=== PATIENT | female | born 2000 | race Caucasian/White ===

== ENCOUNTER 2024-11-06 18:46 | Inpatient (IN) | payer BC, MEDICAID, SELFPAY ==
[2024-11-06] VITALS (27 sets, daily range): BP systolic 93–127; BP diastolic 51–78; PULSE 68–103; RESP 17; TEMP 36.6–36.8; O2SAT 97–99; BMI 28.1
[2024-11-06 18:16] LABS: Basophils # 0.1 10^3/uL (0.0-0.1); Basophils % 0.3 %; Eosinophils # 0.1 10^3/uL (0.0-0.8); Eosinophils % 0.3 %; Hematocrit 35.7 % (36-47); Lymphocytes % 12.3 %; Mean Corpuscular HGB Conc 33.9 g/dL (30-55); Mean Corpuscular Hemoglobin 30.1 pg (27-33); Mean Corpuscular Volume 88.8 fl (85-98); Mean Platelet Volume 10.7 fL (7.4-10.4); Monocytes # 0.8 10^3/uL (0.2-0.9); Monocytes % 4.7 %; Neutrophils # 13.22 10^3/uL (1.8-7.7); Neutrophils % 81.5 %; Nucleated Red Blood Cells % 0 %; Platelet Count 265 10^3/cmm (157-399); Red Blood Count 4.02 10^6/uL (3.85-5.65); Red Cell Distribution Width 12.2 % (12.1-15.1); White Blood Count 16.23 10^3/uL (3.29-11.43)
[2024-11-06] MEDS: dextrose 5%-sod chloride 0.45% 1,000 ML 125 ML IV (18:28)
[2024-11-06] MEDS: ampicillin 2,000 MG in sodium chloride 0.9% (plus) 50 ML 100 MG IV (18:28)
[2024-11-06 18:36] LABS: Amphetamines Screen Urine Negative (Negative); Barbiturates Screen Urine Negative (Negative); Benzodiazepines Screen Urine Negative (Negative); Cocaine Screen Urine Negative (Negative); Opiate Screen Urine Negative (Negative); PCP Screen Urine Negative (Negative); THC Screen Urine Positive (Negative)
[2024-11-06] MEDS: sodium chloride 0.9% 1,000 ML 999 ML IV ×2 (21:37→21:39)
[2024-11-06] MEDS: ampicillin 1,000 MG in sodium chloride 0.9% (plus) 50 ML 100 MG IV (22:23)
[2024-11-06] MEDS: ROPivacaine syringe 100 MG/50 ML SYRINGE 12 MG EPIDURAL (23:00)
--- NOTE | 2024-11-06 23:15 | ANES.PAUD2 ---
Pre-Anesthetic Update Pre-Anesthetic Assessment: Date of Surgery/Procedure: 11/06/24 Any changes to Pre-Anesthetic Assessment?: No Labs Last 48hrs: Short CBC 11/06/24 Range/Units 17:45 WBC 16.23 H (3.29-11.43) 10^ 3/uL Hgb 12.10 (11.27-16.99) g/ dL Hct 35.7 L (36-47) % MCV 88.8 (85-98) fl Plt Count 265 (157-399) 10^3/c mm Neut % (Auto) 81.5 % Neut # (Auto) 13.22 H (1.8-7.7) 10^3/u L Blood Bank 11/06/24 17:45 Blood Type O Positive Rho(D) Type Rh positive Antibody Screen Negative Vitals: Temperature 97.9 F 11/06/24 18:00 Temperature Source Temporal Artery S can 11/06/24 18:00 Pulse Rate 98 11/06/24 23:13 Pulse Rhythm Regular 11/06/24 16:30 Pulse Strength 3+ Normal 11/06/24 16:30 Respiratory Rate 17 11/06/24 18:00 Respiratory Effort Spontaneous, Non- Labored, Easy 11/06/24 16:30 Respiratory Depth Normal 11/06/24 16:30 Respiratory Patter n Normal 11/06/24 16:30 Blood Pressure 94/51 11/06/24 23:13 Pulse Oximetry 97 11/06/24 23:04 Oxygen Delivery Me thod Room Air 11/06/24 16:30 Exam: Pre-Anes Outpt Exam: alert, oriented x 3, clear to auscultation bilaterally and regular rate & rhythm Cardiac Studies: No Data to Display
--- NOTE | 2024-11-06 23:16 | ANES.PROC ---
Anesthesia Procedures Procedure/Date: 11/06/24 Epidural: Time Out Performed: Yes Consents Signed: Procedure Consent and NPO Consent Consent: requested by attending/covering physician, from patient, risks and benefits reviewed and patient agrees to proceed Lumbar Level: L3-L4 Epidural position: sitting Epidural procedure: sterile prep of area (betadine), 1% lidocaine to numb the area (3 mLs), neg for paresthesia, test dose given, 1.5% xylocaine 1:200k epi (3 mLs/ 2 mLs), 0.2% Ropivacaine bolus ml (2 mL), placed PCEA, no systemic response, sterile dressing applied, L.U.D. no apparent complications and 0.2% Ropiavacaine @ mls/hr (12) Additional Comments: Attempt x2. ISAIAH 6cm catheter threaded to 11cm. Patient tolerated well. Negative for blood or CSF on aspiration.
[2024-11-07] VITALS (38 sets, daily range): BP systolic 86–131; BP diastolic 48–82; PULSE 62–90; RESP 16–18; TEMP 36.6–36.8; O2SAT 97
[2024-11-07] MEDS: ROPivacaine syringe 100 MG/50 ML SYRINGE 12 MG EPIDURAL ×2 (02:27→06:14)
[2024-11-07] MEDS: ampicillin 1,000 MG in sodium chloride 0.9% (plus) 50 ML 100 MG IV (02:28)
[2024-11-07] MEDS: ondansetron 2 mg/ML SDV 2 mL 4 MG IVP ×2 (04:56→10:30)
--- NOTE | 2024-11-07 05:10 | PM.OBGYHP ---
Providers/Chief Complaint Admitting Physician: Amy Bobo DO Primary SECURITIES ANALYST: Dr. Serene Chaudhari Chief Complaint: contractions HPI SECURITIES ANALYST History of Present Illness Yifan Treadwell is a 23 year old female G3, P1 Ab1 with unknown LMP. LEA 11/30/2024 currently 36.4 weeks gestation based on ultrasound. Patient has had essentially no care since August. care was started late second trimester approximately 26 weeks. PMH?anxiety/depression Social history?positive for vaping, history of marijuana use Patient has history of labor and delivery at 32 weeks resulting in demise. Patient was observed on labor and delivery with contractions every 2 to 4 minutes. Cervix progressed from 3 cm to 5 cm/70%/-2 vertex with bulging membranes.. Patient was admitted to labor and delivery after extended observation due to her history of demise at 32 weeks gestation. Patient also had limited care with only 2 visits. EFM?category 1 AROM?blood-tinged fluid noted. Present Details : 3 Para: 1 Labs Rubella: Immune RPR: Negative GBS: Unknown Review of Systems General: Reports: 10 or more systems reviewed and unremarkable except in HPI and below Medications/Allergies Allergies Allergy/AdvReac Type Severity Reaction Status Date / Time pseudoephedrine Allergy Palpitation Verified 11/07/24 05:21 [From Chris] s [facility] SECURITIES ANALYST Other Female Reproductive History: Menstrual History Comment: LMP?unknown Sexual History: Are you sexually active?: Yes History History History 3 Term 0 1 Miscarriages/Ectopic 1 Living Children 0 Other History: History of delivery with demise at 32 weeks gestation 07/24/2022 Vitals/I&O/Wt Last Vital Signs Temp 98.0 F 11/07/24 04:29 Pulse 83 11/07/24 04:36 Resp 17 11/06/24 18:00 BP 102/48 11/07/24 04:36 Pulse Ox 97 11/06/24 23:04 O2 Del Method Room Air 11/06/24 16:30 11/06/24 11/06/24 11/07/24 14:59 22:59 06:59 Intake Total 83.3 / 83.3 50 / 133.3 Output Total 600 / 600 Balance 83.3 / 83.3 -550 / -466.7 Weight last 48 hrs Weight 76.657 kg Physical Exam Narrative: 23-year-old female alert and orient x 3 no acute distress. HENMT: COMMON NORMALS: normocephalic, moist oral mucous membranes and dentition normal Resp: COMMON NORMALS: normal respiratory effort and clear to auscultation bilaterally Cardio: COMMON NORMALS: regular rate, regular rhythm and No murmurs present (Cardio) Back/Pelvis: OTHER: Abdomen soft, gravid No CVA tenderness Extremity: COMMON NORMALS: normal to inspection, no clubbing, cyanosis or edema and no calf tenderness Neuro: COMMON NORMALS: patient oriented x3, CN's II-XII intact bilaterally, moves all extremities and deep tendon reflexes 2+ bilaterally Urinary Catheter Management: Davis: Cath Placed During This Visit: yes Urinary Catheter Date of Insertion: 11/06/24 Data 11/06/24 17:45 Results Labs OB ([facility]): Blood Type O Positive 11/06/24 Antibody Screen Negative 11/06/24 Hct 35.7 % (36-47) L 11/06/24 Hgb 12.10 g/dL (11.27-16.99) 11/06/24 Rho(D) Type Rh positive 11/06/24 Plt Count 265 10^3/cmm (157-399) 11/06/24 Urine Opiates Screen Negative ng/mL (Negative) 11/06/24 Ur Barbiturates Screen Negative ng/mL (Negative) 11/06/24 Ur Phencyclidine Scrn Negative ng/mL (Negative) 11/06/24 Ur Amphetamines Screen Negative ng/mL (Negative) 11/06/24 U Benzodiazepines Scrn Negative ng/mL (Negative) 11/06/24 Urine Cocaine Screen Negative ng/mL (Negative) 11/06/24 U Marijuana (THC) Screen Positive ng/mL (Negative) H 11/06/24 A&P Assessment and plan (1) 36 weeks gestation of : Admit to labor and delivery for labor management. Treated for unknown GBS status. (2) labor in third trimester: (3) History of delivery: Attestations Medical Necessity Statement*: Patient admitted to labor and delivery for management of labor. Coding Level of Care Code Acute Code for Chg Fwd Diagnoses 36 weeks gestation of Z3A.36 labor in third trimester O60.03 History of delivery Z87.51
--- NOTE | 2024-11-07 06:56 | P.PCNOB_ITS ---
Delivery Note: Date of delivery: November 07, 2024 Pre-delivery diagnoses: 36.3 weeks gestation labor History of delivery at 32 weeks gestation with demise Post-delivery diagnoses: delivery at 36.3 weeks gestation Cord around right arm?easily reduced Procedure: viable male 5 pounds 11 ounces Op report anesthesia: Epidural Delivering Physician: Amy Bobo DO Estimated blood loss (mL): 300 Findings: Viable male? at 36 weeks gestation Delivery: 23-year-old female G3 now P2 delivered v ia of viable male infant over intact perineum. The vertex presented in OA presentation, followed by delivery of the anterior then posterior shoulder with the remainder the baby's body to follow. Spontaneous robust cry was noted. The oral and nasal pathways bulb suction. After 1 minute delay of cord clamping, the cord was clamped and cut and baby placed on the maternal abdomen for bonding. Nursing staff then placed baby on the warmer for evaluation and assessment. Blood was drawn for pH from the venous and arterial vessels as well as cord blood and handed off. The uterus was massaged and the placenta presented in a Salguero presentation with trailing membranes. IV solution containing Pitocin was given in a bolus manner. With uterine massage the uterus firmed nicely with minimal bleeding. The cervix vaginal vault and perineum were explored with no lacerations noted. Mother and both in stable and satisfactory condition. Post-Delivery Status: Stable History History History 3 Term 0 1 Miscarriages/Ectopic 1 Living Children 0 Other History: History of delivery with demise at 32 weeks gestation 07/24/2022 A&P Assessment and plan (1) History of delivery: (2) labor in third trimester: (3) 36 weeks gestation of : (4) Normal spontaneous vaginal delivery: (5) delivery, delivered: Plan Began care. Coding Level of Care Code Acute Code for Chg Fwd Diagnoses History of delivery Z87.51 labor in third trimester O60.03 36 weeks gestation of Z3A.36 Normal spontaneous vaginal delivery O80 delivery, delivered O60.10X0
[2024-11-07 20:07] LABS: Hematocrit 34.4 % (36-47); Mean Corpuscular HGB Conc 33.7 g/dL (30-55); Mean Corpuscular Hemoglobin 30.1 pg (27-33); Mean Corpuscular Volume 89.1 fl (85-98); Mean Platelet Volume 10.8 fL (7.4-10.4); Platelet Count 236 10^3/cmm (157-399); Red Blood Count 3.86 10^6/uL (3.85-5.65); Red Cell Distribution Width 12.2 % (12.1-15.1); White Blood Count 15.45 10^3/uL (3.29-11.43)
[2024-11-07] MEDS: ibuprofen 800 mg tablet PO (21:08)
[2024-11-08 06:36] VITALS: BP 98/59; PULSE 61; RESP 16; O2SAT 98
[2024-11-08] MEDS: PRENATAL VIT NO.130/IRON/FOLIC 1 EACH TABLET PO (09:49)
[2024-11-08] MEDS: ibuprofen 800 mg tablet PO (09:49)
--- NOTE | 2024-11-08 10:14 | P.DS_ITS ---
Discharge Providers ADMINISTRATIVE AND PROGRAM SPECIALIST Date of Admission: 11/06/24 18:46 Date of Discharge: 11/08/24 Attending Provider at Admission: Amy Bobo DO Attending Provider at Discharge: Amy Bobo DO Primary ADMINISTRATIVE AND PROGRAM SPECIALIST: Dr. Brooke Diagnoses at Discharge Discharge Diagnosis (1) History of delivery: Details from hospital stay: 23-year-old female s/p day 1, patient doing well without complaints. Patient is ambulating, tolerating regular diet and voiding. Patient is breast-feeding and supplementing with bottle. Patient denies headaches, blurred vision, chest pain or shortness of breath. She considers her bleeding normal flow without passage of large clots. Her cramping has been controlled with ibuprofen. and discharge expectations have been reviewed with patient in great detail to include uterine cramping and what to expect for variation in bleeding. Patient is encouraged to refrain from heavy lifting pulling or pushing and to refrain from sexual intercourse x 6 weeks. Patient is encouraged to continue her vitamins throughout breast-feeding. Patient verbalizes understanding. Status: Acute (2) labor in third trimester: Details from hospital stay: See above Status: Acute (3) 36 weeks gestation of : Status: Acute (4) Normal spontaneous vaginal delivery: Status: Acute (5) delivery, delivered: Status: Acute Reason for Visit Reason for Visit: contractions Hospital Course Hospital Course See above Information Peripartum Data: Delivery Method: Vaginal Physical Exam Narrative: 23-year-old female alert and orient x 3 in no acute distress Cardio: COMMON NORMALS: regular rate and regular rhythm RATE: regular rate RHYTHM: regular rhythm Back/Pelvis: OTHER: Abdomen?soft, fundus firm Lochia?light Extremity: COMMON NORMALS: normal to inspection, no clubbing, cyanosis or edema and no calf tenderness Urinary Catheter Management: Davis: Cath Placed During This Visit: yes, but has since been removed by the nurse Reason for Continuing Indwelling Catheter: Decision to DC Catheter Urinary Catheter Date of Insertion: 11/06/24 Date Urinary Catheter Removed: 11/07/24 Time Urinary Catheter Discontinued: 06:38 History History History 3 Term 0 2 Miscarriages/Ectopic 1 Living Children 1 Other History: History of delivery with demise at 32 weeks gestation 07/24/2022 Discharge Data Studies Completed and Pending Pending at discharge Category Date Time Status Group B Streptococcus Culture Stat Lab 11/06/24 17:00 Received Retype for Patiets ABO/Rh Routine Lab 11/06/24 19:47 Ordered Laboratory Results WBC 15.45 10^3/uL (3.29-11.43) H 11/07/24 19:40 RBC 3.86 10^6/uL (3.85-5.65) 11/07/24 19:40 Hgb 11.60 g/dL (11.27-16.99) 11/07/24 19:40 Hct 34.4 % (36-47) L 11/07/24 19:40 MCV 89.1 fl (85-98) 11/07/24 19:40 MCH 30.1 pg (27-33) 11/07/24 19:40 MCHC 33.7 g/dL (30-55) 11/07/24 19:40 RDW 12.2 % (12.1-15.1) 11/07/24 19:40 Plt Count 236 10^3/cmm (157-399) 11/07/24 19:40 MPV 10.8 fL (7.4-10.4) H 11/07/24 19:40 Neut % (Auto) 81.5 % 11/06/24 17:45 Lymph % (Auto) 12.3 % 11/06/24 17:45 Pettis % (Auto) 4.7 % 11/06/24 17:45 Eos % (Auto) 0.3 % 11/06/24 17:45 Baso % (Auto) 0.3 % 11/06/24 17:45 Neut # (Auto) 13.22 10^3/uL (1.8-7.7) H 11/06/24 17:45 Lymph # (Auto) 2.0 10^3/uL (0.8-4.8) 11/06/24 17:45 Pettis # (Auto) 0.8 10^3/uL (0.2-0.9) 11/06/24 17:45 Eos # (Auto) 0.1 10^3/uL (0.0-0.8) 11/06/24 17:45 Baso # (Auto) 0.1 10^3/uL (0.0-0.1) 11/06/24 17:45 Nucleated RBC % (auto) 0 % 11/06/24 17:45 Nucleated RBCs # 0.0 /100WBC 11/06/24 17:45 Urine Opiates Screen Negative ng/mL (Negative) 11/06/24 17:30 Ur Barbiturates Screen Negative ng/mL (Negative) 11/06/24 17:30 Ur Phencyclidine Scrn Negative ng/mL (Negative) 11/06/24 17:30 Ur Amphetamines Screen Negative ng/mL (Negative) 11/06/24 17:30 U Benzodiazepines Scrn Negative ng/mL (Negative) 11/06/24 17:30 Urine Cocaine Screen Negative ng/mL (Negative) 11/06/24 17:30 U Marijuana (THC) Screen Positive ng/mL (Negative) H 11/06/24 17:30 Blood Type O Positive 11/06/24 17:45 Rho(D) Type Rh positive 11/06/24 17:45 Antibody Screen Negative 11/06/24 17:45 Vitals Last Vital Signs Temp 98.3 F 11/07/24 21:09 Pulse 61 11/08/24 06:36 Resp 16 11/08/24 06:36 BP 98/59 11/08/24 06:36 Pulse Ox 98 11/08/24 06:36 O2 Del Method Room Air 11/08/24 06:36 Results Labs OB ([facility]): Blood Type O Positive 11/06/24 Antibody Screen Negative 11/06/24 Hct 34.4 % (36-47) L 11/07/24 Hgb 11.60 g/dL (11.27-16.99) 11/07/24 Rho(D) Type Rh positive 11/06/24 Plt Count 236 10^3/cmm (157-399) 11/07/24 Urine Opiates Screen Negative ng/mL (Negative) 11/06/24 Ur Barbiturates Screen Negative ng/mL (Negative) 11/06/24 Ur Phencyclidine Scrn Negative ng/mL (Negative) 11/06/24 Ur Amphetamines Screen Negative ng/mL (Negative) 11/06/24 U Benzodiazepines Scrn Negative ng/mL (Negative) 11/06/24 Urine Cocaine Screen Negative ng/mL (Negative) 11/06/24 U Marijuana (THC) Screen Positive ng/mL (Negative) H Discharge Plan Discharge Patient Disposition: Home Condition: Stable Discharge Orders: Discharge Order (Routine); Ordered 11/08/24 Ordered By: Amy Bobo Discharge Diet: Regular Discharge Activity: Increase activity as tolerated Patient Instructions: Depression (DC), Opioid Safety (DC), Preeclampsia and Eclampsia After Delivery (GEN), Hemorrhage (DC), OB Discharge Report, OB Food/Drug Interaction Guide, Opioid Safety, OB Home Care, OB Vaginal Deliveries - [facility], Abnormal Bleeding Activity Restrictions/Additional Instructions: Patient to refrain from strenuous activity. Patient to refrain from sexual intercourse x 6 weeks. Patient to continue vitamins throughout breast-feeding. Assessment: Status post at 36 weeks gestation. Plan of Treatment: Discharge patient to home. Follow-up at the clinic in 4 to 6 weeks. Discharge Attestations ADMINISTRATIVE AND PROGRAM SPECIALIST Time Spent in Discharge Care*: less than 30 min Coding Level of Care Code Acute Code for Chg Fwd Diagnoses History of delivery Z87.51 labor in third trimester O60.03 36 weeks gestation of Z3A.36 Normal spontaneous vaginal delivery O80 delivery, delivered O60.10X0
[2024-11-08 11:00] VITALS: BP 82/58; PULSE 71; RESP 16; TEMP 36.6
[2024-11-08 17:47] VITALS: BP 104/59; PULSE 63; RESP 15; TEMP 36.7; O2SAT 99
--- NOTE | 2024-11-09 12:52 | ANE.PACU2 ---
Inpatient post-anesthesia follow up: Airway intact: Yes Vital signs: Temperature 98.0 F Pulse Rate 63 Respiratory Rate 15 Blood Pressure 104/59 Pulse Oximetry 99 Oxygen Delivery Me thod Room Air Oxygen Flow Rate Fraction of Inspir ed Oxygen Hydration adequate: Yes Nausea and vomiting: No Pain level: 2 Mental status: Baseline
== END 2024-11-08 17:51 | disposition home or self-care (01) | DRG 807 ==
LOC: OPOB 11-09 14:03
PROVIDERS: Admitting Provider Obstetrics & Gynecology; Visit Provider Obstetrics & Gynecology
DX: O60.14X0 Preterm labor third trimester with preterm delivery third trimester, not applicable or unspecified (principal); Z37.0 Single live birth; O69.81X0 Labor and delivery complicated by cord around neck, without compression, not applicable or unspecified; Z3A.36 36 weeks gestation of pregnancy
CPT/HCPCS: 36415; 51702; 59025; 59409; 80306; 85025; 85027; 86850; 86900; 87081; 99211; J0290; J2405; J2795; J7030; J7799